=== PATIENT | male | born 1950 | race Caucasian/White ===

== ENCOUNTER 2016-04-18 07:23 | Day surgery (SDC) | payer OTHER ==
[~2016-04-18 07:23] MED LIST: BUPIVACAINE 0.5% 30 ML SDV ONE; LIDOCAINE 1% 30 ML SDV ONE; ceFAZolin 2 GM/DEXTROSE 100 ML IV ONE
[2016-04-18] MEDS ORDERED: LIDOCAINE 1% 5 ML SDV ONE (07:59)
[2016-04-18] MEDS ORDERED: LR 1,000 ML IV ONE (08:23)
[2016-04-18] MEDS ORDERED: LIDOCAINE 1% 5 ML SDV ID PRN (08:23)
[2016-04-18] MEDS ORDERED: MIDAZOLAM 2 MG/2 ML VIAL ONE (08:56)
[2016-04-18] MEDS ORDERED: PROPOFOL/EMULSION 500 MG/50 ML BOTTLE IV ONE (09:04)
[2016-04-18] MEDS ORDERED: fentaNYL 250 MCG/5 ML INJ ONE (09:06)
--- NOTE | 2016-04-19 06:59 | GOP ---
[f rep st] OPERATIVE REPORT DATE OF OPERATION: 04/18/2016 SURGEON: Chelsey Davila MD COMPOSITION FLOOR SETTER: DIANNA Bagley ANESTHESIOLOGIST: Dr. Dav Stubbs. PREOPERATIVE DIAGNOSIS: Right inguinal lymphadenopathy. POSTOPERATIVE DIAGNOSIS: Right inguinal lymphadenopathy. PROCEDURE PERFORMED: Excision of right inguinal lymph node, superficial. FINDINGS: At least a 7 cm lymph node. SPECIMENS: Lymph nodes. ESTIMATED BLOOD LOSS: 5 cc. INDICATIONS: This patient is a 65-year-old man who has had a large lymph node in his groin for quite some time. I had performed biopsy in the office, which was inconclusive. He presents to have excis ional biopsy. DESCRIPTION OF PROCEDURE: The patient was brought into the operating room, placed supine on the tabl e, and anesthesia was administered. I infiltrated the area with 0.5% Marcaine prior to making incisi ons. I made an incision over the lymph node at the level of the inguinal ligament. I dissected down throu gh the subcutaneous tissues and circumferentially dissected the lymph node. I passed this off the fi eld. Hemostasis was achieved. The wound was closed with 3-0 Vicryl deep layer followed by 3-0 Vicryl, 4-0 Monocryl superficially. Mastisol, Steri-Strips, and a sterile dressing were applied. He was awakened in the operating room, transferred to PACU in stable condition. /[id number]/MODL
[2016-04-21 18:10] LABS: FINAL DIAGNOSIS See Comments (()); MICROSCOPIC DESCRIPTION See Comments (())
[2016-04-29 14:51] LABS: PATH CONS ACCESSION # HR17-6570; PATH CONS FINAL DIAGNOSIS See Comments; PATH CONS MATERIAL See Comments; PATH CONS REFERRING ADDRESS See Comments
== END 2016-04-18 11:15 | disposition home or self-care (01) ==
LOC: FSGY 07:23
PROVIDERS: ATTEND Surgery
PROC: 07TH0ZZ Resection of Right Inguinal Lymphatic, Open Approach (ICD-10-PCS; principal; 2016-04-18 09:02)
DX: R59.0 Localized enlarged lymph nodes (principal); M06.9 Rheumatoid arthritis, unspecified
CPT/HCPCS: 88184-90; 88185-91; J0690; J2250; J2704; J3010